=== PATIENT | female | born 1970 | race Caucasian/White ===

== ENCOUNTER 2025-09-26 10:51 | Outpatient (CLI) | payer BC, SELFPAY ==
--- NOTE | 2025-09-26 11:00 | CRLHL7_ITS ---
For Patients: As a result of the Century Cures Act, medical imaging exams and procedure reports are released immediately into your electronic medical record. You may view this report before your referring provider. If you have questions, please contact your health care provider. Indication: Right ear pain. Technique: Noncontrast CT images of the temporal bones. Comparison: None Findings: Right Side: The external auditory canal is widely patent. The tympanic membrane is faintly visualized. The middle ear cavity is clear. The ossicles and scutum are intact. No evidence for otosclerosis. Normal morphology of the inner ear structures. No semicircular canal dehiscence. Trace opacification mastoid air cells. Left side: The external auditory canal is widely patent. The tympanic membrane is faintly visualized. The middle ear cavity is clear. The ossicles and scutum are intact. No evidence for otosclerosis. Normal morphology of the inner ear structures. No semicircular canal dehiscence. The mastoid air cells are clear. Other: Minimal mucosal thickening in the visualized paranasal sinuses. Impression: Unremarkable CT of the temporal bones. Please note that all CT scans at this facility use dose modulation, iterative reconstruction, and/or weight-based dosing when appropriate to reduce radiation dose to as low as reasonably achievable. Dictated by Jordi Lopez MD @ 09/28/2025 7:57:00 AM (Electronically Signed)
== END 2025-09-26 10:52 | disposition home or self-care (01) ==
LOC: CT 10:53
PROVIDERS: PCP Family Medicine; Visit Provider Physician Assistant
DX: H93.8X1 Other specified disorders of right ear (principal); H90.2 Conductive hearing loss, unspecified
CPT/HCPCS: 70480